=== PATIENT | female | born 1950 | race Hispanic/Latino ===

== ENCOUNTER 2018-06-15 18:29 | Emergency (ER) | payer BC, OTHER ==
[2018-06-15] MEDS ORDERED: METOCLOPRAMIDE 10 MG/2mL INJ ONE (18:58)
[2018-06-15] MEDS ORDERED: NA CHLORIDE 0.9% 500 ML ONE (18:59)
[2018-06-15 19:17] LABS: Absolute Lymphocytes (CBC) 2.9 K/uL (0.7-4.9); Absolute Monocytes 0.5 K/uL (0.1-1.3); Absolute Neutrophil 6.5 K/uL (1.8-8.0); Basophils % 0.6 % (0-1.3); Eosinophils % 1.2 % (0-4.4); Hematocrit 42.9 % (36.0-45.0); Lymphocytes % 28.5 % (15.3-44.8); MCH 30.1 pg (27.0-35.0); MCV 90.3 fL (80-100); MPV 11.1 fL (7.6-11.3); RBC Red Blood Cell Count 4.76 M/uL (3.86-4.86)
[2018-06-15 19:33] LABS: Urine Blood TRACE (NEG); Urine Glucose NEGATIVE (NEG); Urine Protein 1+ (NEG); Urine Specific Gravity 1.025 (1.005-1.030)
[2018-06-15 19:35] LABS: Urine Bacteria <20 /HPF (<20); Urine Culture Reflex Order REFLEXED; Urine Mucus 2+ /HPF (NONE SEEN); Urine RBC <5 /HPF (NONE SEEN)
[2018-06-15 19:35] LABS: ALT/SGPT 23 U/L (12-78); AST/SGOT 22 U/L (15-37); Albumin 3.9 g/dL (3.4-5.0); Alkaline Phosphatase 84 U/L (45-117); BUN Blood Urea Nitrogen 17 mg/dL (7-18); Bicarbonate 24 mmol/L (21-32); Bilirubin Direct < 0.1 mg/dL (0-0.2); Bilirubin Total 0.4 mg/dL (0.2-1.0); Glucose Level 149 mg/dL (74-106); Lipase 101 U/L (73-393); Potassium 3.5 mmol/L (3.5-5.1); Protein, Total 7.7 g/dL (6.4-8.2); Sodium Level 144 mmol/L (136-145)
--- NOTE | 2018-06-15 20:24 | EDPHYS ---
Physician Documentation [facility] Name: Alyse Cole Age: 68 yrs Sex: Female : 1950 Arrival Date: 06/15/2018 Time: 18:29 Bed 20 Private MD: ED Physician Buddy Neumann HPI: 06/15 19:00 This 68 yrs old Female presents to ER via Wheelchair with complaints of snw Weakness, Vomiting, Abdominal Pain. 19:00 The patient presents with abdominal pain in the periumbilical area. Onset: The snw symptoms/episode began/occurred suddenly, just prior to arrival. The symptoms do not radiate. Associated signs and symptoms: Pertinent positives: nausea and vomiting. The symptoms are described as crampy. Severity of pain: At its worst the pain was mild moderate. The patient has not experienced similar symptoms in the past. It is unknown whether or not the patient has recently seen a physician. PCP in [place]. Pt feels the symptoms are related to chicken ingested earlier in the day. Historical: - Allergies: 18:40 No Known Allergies; aj - Home Meds: 18:40 None [Active]; aj - PMHx: 18:40 None; aj - PSHx: 18:40 None; aj - Immunization history:: Adult Immunizations up to date. - Social history:: Smoking status: Patient/guardian denies using tobacco. - Ebola Screening: : Patient negative for fever greater than or equal to 101.5 degrees Fahrenheit, and additional compatible Ebola Virus Disease symptoms Patient denies exposure to infectious person Patient denies travel to an Ebola-affected area in the 21 days before illness onset No symptoms or risks identified at this time. ROS: 18:58 Constitutional: Negative for fever, chills, and weight loss, Eyes: Negative for injury, snw pain, redness, and discharge, ENT: Negative for injury, pain, and discharge, Neck: Negative for injury, pain, and swelling, Cardiovascular: Negative for chest pain, palpitations, and edema, Respiratory: Negative for shortness of breath, cough, wheezing, and pleuritic chest pain, Back: Negative for injury and pain, : Negative for injury, bleeding, discharge, and swelling, MS/Extremity: Negative for injury and deformity, Skin: Negative for injury, rash, and discoloration, Neuro: Negative for headache, weakness, numbness, tingling, and seizure. 18:58 Abdomen/GI: Positive for abdominal pain, nausea and vomiting, x 2 post ingestion of chicken today. Exam: 18:58 Constitutional: This is a well developed, well nourished patient who is awake, alert, snw and in no acute distress. Head/Face: Normocephalic, atraumatic. Eyes: Pupils equal round and reactive to light, extra-ocular motions intact. Lids and lashes normal. Conjunctiva and sclera are non-icteric and not injected. Cornea within normal limits. Periorbital areas with no swelling, redness, or edema. ENT: Nares patent. No nasal discharge, no septal abnormalities noted. Tympanic membranes are normal and external auditory canals are clear. Oropharynx with no redness, swelling, or masses, exudates, or evidence of obstruction, uvula midline. Mucous membranes moist. Neck: Trachea midline, no thyromegaly or masses palpated, and no cervical lymphadenopathy. Supple, full range of motion without nuchal rigidity, or vertebral point tenderness. No Meningismus. Chest/axilla: Normal chest wall appearance and motion. Nontender with no deformity. No lesions are appreciated. Cardiovascular: Regular rate and rhythm with a normal S1 and S2. No gallops, murmurs, or rubs. Normal PMI, no JVD. No pulse deficits. Respiratory: Lungs have equal breath sounds bilaterally, clear to auscultation and percussion. No rales, rhonchi or wheezes noted. No increased work of breathing, no retractions or nasal flaring. Back: No spinal tenderness. No costovertebral tenderness. Full range of motion. Skin: Warm, dry with normal turgor. Normal color with no rashes, no lesions, and no evidence of cellulitis. MS/ Extremity: Pulses equal, no cyanosis. Neurovascular intact. Full, normal range of motion. Neuro: Awake and alert, GCS 15, oriented to person, place, time, and situation. Cranial nerves II-XII grossly intact. Motor strength 5/5 in all extremities. Sensory grossly intact. Cerebellar exam normal. Normal gait. Psych: Awake, alert, with orientation to person, place and time. Behavior, mood, and affect are within normal limits. 18:58 Abdomen/GI: Inspection: abdomen appears normal, Bowel sounds: normal, Palpation: mild abdominal tenderness, in the umbilical area. Vital Signs: 18:40 BP 128 / 63; Pulse 83; Resp 27; Temp 97.1; Pulse Ox 98% on R/A; Weight 67.13 kg; Height aj 5 ft. 5 in. (165.10 cm); 20:16 BP 132 / 65; Pulse 78; Resp 15; Pulse Ox 99% on R/A; ao 18:40 Body Mass Index 24.63 (67.13 kg, 165.10 cm) aj MDM: 18:56 Patient medically screened. snw 18:58 Data reviewed: vital signs, nurses notes. Data interpreted: Pulse oximetry: on room air snw is 98 %. Interpretation: normal. Counseling: I had a detailed discussion with the patient and/or guardian regarding: the historical points, exam findings, and any diagnostic results supporting the discharge/admit diagnosis, lab results. 20:08 Response to treatment: the patient's symptoms have markedly improved after treatment. [facility] 06/15 18:52 Order name: Basic Metabolic Panel; Complete Time: 19:37 snw 06/15 18:52 Order name: CBC with Diff; Complete Time: 19:24 snw 06/15 18:52 Order name: Creatinine for Radiology; Complete Time: 19:25 snw 06/15 18:52 Order name: Hepatic Function; Complete Time: 19:37 snw 06/15 18:52 Order name: Lipase; Complete Time: 19:37 snw 06/15 18:52 Order name: Urine Microscopic Only; Complete Time: 19:37 snw 06/15 18:52 Order name: IV Saline Lock; Complete Time: 19:05 snw 06/15 18:52 Order name: Labs collected and sent; Complete Time: 19:05 snw 06/15 18:52 Order name: Urine Dipstick-Ancillary (obtain specimen); Complete Time: 19:57 snw 06/15 19:28 Order name: Urine Dipstick--Ancillary (enter results); Complete Time: 19:33 pr 06/15 19:37 Order name: Urine Culture EDMS Administered Medications: 19:17 Drug: NS 0.9% 500 ml Route: IV; Rate: bolus; Site: right antecubital; ao 20:52 Follow up: IV Status: Completed infusion; IV Intake: 500ml ao 19:17 Drug: Reglan 5 mg Route: IVP; Site: right antecubital; ao 20:51 Follow up: Response: No adverse reaction ao Disposition: 06/16 07:12 Co-signature as Attending Physician, Buddy Neumann MD I agree with the assessment and kdr plan of care. Disposition: 06/15/18 20:23 Discharged to Home. Impression: Vomiting, unspecified. - Condition is Stable. - Discharge Instructions: Clear Liquid Diet, Adult, Nausea and Vomiting, Adult, Rehydration, Adult. - Prescriptions for Zofran 4 mg Oral Tablet - take 1 tablet by ORAL route every 12 hours As needed; 20 tablet. - Medication Reconciliation Form, Thank You Letter, Antibiotic Education, Prescription Opioid Use form. - Follow up: Private Physician; When: 2 - 3 days; Reason: Recheck today's complaints, Continuance of care, Re-evaluation by your physician. Follow up: Emergency Department; When: As needed; Reason: Worsening of condition. Signatures: Dispatcher [employer] EDMely Domínguez, RN Buddy Villarreal MD MD [facility] Shameka Ren, HOOP MACHINE OPERATOR-C HOOP MACHINE OPERATOR-Csnw Aldair Reis RN RN ao Corrections: (The following items were deleted from the chart) 06/15 20:54 20:23 06/15/2018 20:23 Discharged to Home. Impression: Vomiting, unspecified. Condition ao is Stable. Forms are Medication Reconciliation Form, Thank You Letter, Antibiotic Education, Prescription Opioid Use. Follow up: Private Physician; When: 2 - 3 days; Reason: Recheck today's complaints, Continuance of care, Re-evaluation by your physician. Follow up: Emergency Department; When: As needed; Reason: Worsening of condition. snw
--- NOTE | 2018-06-15 20:24 | ER ---
Nurse's Notes [facility] Name: Alyse Cole Age: 68 yrs Sex: Female : 1950 Arrival Date: 06/15/2018 Time: 18:29 Bed 20 Private MD: Diagnosis: Vomiting, unspecified Presentation: 06/15 18:39 Presenting complaint: Child states: Vomiting x 2 episodes since eating chicken at 1400 aj today. Patient hyperventilating in triage. Transition of care: patient was not received from another setting of care. 18:39 Method Of Arrival: Wheelchair aj 18:40 Onset of symptoms was June 15, 2018. Risk Assessment: Do you want to hurt yourself or aj someone else? Patient reports no desire to harm self or others. Initial Sepsis Screen: Does the patient meet any 2 criteria? No. Patient's initial sepsis screen is negative. Does the patient have a suspected source of infection? No. Patient's initial sepsis screen is negative. Care prior to arrival: None. 18:40 Acuity: SILVERIO 3 aj Triage Assessment: 18:40 General: Appears in no apparent distress. comfortable, Behavior is anxious. Pain: aj Complains of pain in left upper quadrant and left lower quadrant. Neuro: Level of Consciousness is awake, alert, obeys commands, Oriented to person, place, time, situation, Appropriate for age. Respiratory: Airway is patent Respiratory effort is even, unlabored, Respiratory pattern is hyperventilation. Derm: Skin is intact, is healthy with good turgor, Skin is pink, warm \T\ dry. normal. Historical: - Allergies: 18:40 No Known Allergies; aj - Home Meds: 18:40 None [Active]; aj - PMHx: 18:40 None; aj - PSHx: 18:40 None; aj - Immunization history:: Adult Immunizations up to date. - Social history:: Smoking status: Patient/guardian denies using tobacco. - Ebola Screening: : Patient negative for fever greater than or equal to 101.5 degrees Fahrenheit, and additional compatible Ebola Virus Disease symptoms Patient denies exposure to infectious person Patient denies travel to an Ebola-affected area in the 21 days before illness onset No symptoms or risks identified at this time. Screenin:20 Abuse screen: Denies threats or abuse. Denies injuries from another. Nutritional ao screening: No deficits noted. Tuberculosis screening: No symptoms or risk factors identified. Fall Risk None identified. Assessment: 19:17 General: Appears in no apparent distress. comfortable, Behavior is calm, cooperative, ao appropriate for age. Pain: Complains of pain in abdomen. Neuro: Level of Consciousness is awake, alert, obeys commands, Oriented to person, place, time, situation, Appropriate for age Moves all extremities. Full function Speech is normal, Facial symmetry appears normal, Pupils are PERRLA, Intact. Cardiovascular: Reports nausea, shortness of breath, Denies chest pain, Heart tones S1 S2. Respiratory: Airway is patent Respiratory effort is even, unlabored, Respiratory pattern is regular, symmetrical. GI: Abdomen is non-distended, Reports upper abdominal pain, nausea. : No signs and/or symptoms were reported regarding the genitourinary system. EENT: No signs and/or symptoms were reported regarding the EENT system. Derm: Skin is intact, Skin is dry, Skin is pink, warm \T\ dry. normal, Skin temperature is warm. Musculoskeletal: Reports weakness in general weakness. 20:16 Reassessment: Patient appears in no apparent distress at this time. Patient and/or ao family updated on plan of care and expected duration. Pain level reassessed. Patient is alert, oriented x 3, equal unlabored respirations, skin warm/dry/pink. Patient under no distress at this time. 20:53 Reassessment: DC instructions given to patient. Patient agree with the POC and to ao follow up with PCP. Vital Signs: 18:40 BP 128 / 63; Pulse 83; Resp 27; Temp 97.1; Pulse Ox 98% on R/A; Weight 67.13 kg; Height aj 5 ft. 5 in. (165.10 cm); 20:16 BP 132 / 65; Pulse 78; Resp 15; Pulse Ox 99% on R/A; ao 18:40 Body Mass Index 24.63 (67.13 kg, 165.10 cm) ED Course: 18:29 Patient arrived in ED. as 18:40 Triage completed. aj 18:40 Arm band placed on left wrist. Patient placed in an exam room. aj 18:50 Shameka Ren FNP-C is PHCP. snw 18:50 Buddy Neumann MD is Attending Physician. sn 19:04 Initial lab(s) drawn, by me, sent to lab. Inserted saline lock: 20 gauge in right dh3 antecubital area, using aseptic technique. Blood collected. 19:08 Aldair Reis, RN is Primary Nurse. ao 19:21 Patient has correct armband on for positive identification. monitoring engineer on. Pulse ao ox on. NIBP on. 20:52 No provider procedures requiring assistance completed. IV discontinued, intact, ao bleeding controlled, No redness/swelling at site. Pressure dressing applied. Administered Medications: 19:17 Drug: NS 0.9% 500 ml Route: IV; Rate: bolus; Site: right antecubital; ao 20:52 Follow up: IV Status: Completed infusion; IV Intake: 500ml ao 19:17 Drug: Reglan 5 mg Route: IVP; Site: right antecubital; ao 20:51 Follow up: Response: No adverse reaction ao Intake: 20:52 IV: 500ml; Total: 500ml. ao Outcome: 20:23 Discharge ordered by MD. snw 20:52 Discharged to home ambulatory. ao 20:52 Condition: stable 20:52 Discharge instructions given to patient, Instructed on discharge instructions, follow up and referral plans. Demonstrated understanding of instructions, follow-up care, medications, Prescriptions given X 1. 20:54 Patient left the ED. ao Signatures: Mely Mccarthy, RN Shameka Martinez, ENGRAVER PICTURE-C ENGRAVER PICTURE-Elizabeth Escoto Alex, RN Coleen Pappas [facility]
== END 2018-06-15 20:54 | disposition home or self-care (01) ==
LOC: ER 18:29
DX: R11.10 Vomiting, unspecified (principal)
CPT/HCPCS: 36415; 80048; 80076; 81003; 81015; 83690; 85025; 87086; 87088; 96361; 96374; 99284; J2765

== ENCOUNTER 2024-03-28 09:48 | Day surgery (SDC) | payer MEDICAID, OTHER ==
[2024-03-27 14:17] LABS: Absolute Eosinophils 0.1 K/uL (0-0.5); Absolute Lymphocytes (CBC) 2.3 K/uL (0.7-4.9); Absolute Monocytes 0.5 K/uL (0.1-1.3); Absolute Neutrophil 4.5 K/uL (1.8-8.0); Basophils % 0.5 % (0-1.3); Hematocrit 40.5 % (36.0-45.0); Hemoglobin 13.3 g/dL (12.0-15.0); Lymphocytes % 30.9 % (15.3-44.8); MCH 29.4 pg (27.0-35.0); MCHC 32.7 g/dL (32.0-36.0); MPV 10.9 fL (7.6-11.3); Monocytes % 7.2 % (3.3-12.3); Neutrophils % 59.4 % (41.7-73.7); Platelets 158 thou/uL (152-406); Red Cell Distribution Width 13.9 % (12.1-15.2)
[2024-03-27 14:29] LABS: Anion Gap 5.6 mEq/L (5.0-15.0); Potassium 3.6 mEq/L (3.5-5.1)
[2024-03-28] MEDS: Ringers Lactate 1,000 ML IV ONE ×2 (10:22→15:20)
[2024-03-28] MEDS ORDERED: ONDANSETRON 4 MG/2 ML VIAL ONE (12:12)
[2024-03-28] MEDS ORDERED: propofoL 200 MG/20 ML VIAL IV ONE (12:12)
[2024-03-28] MEDS ORDERED: dexAMETHasone 10 MG/ML VIAL ONE (12:12)
[2024-03-28] MEDS ORDERED: FENTANYL CITR 100 MCG/2 ML ONE (12:12)
[2024-03-28] MEDS ORDERED: MIDAZOLAM HCL 2 MG/2 ML INJ ONE (12:12)
[2024-03-28] MEDS ORDERED: LIDOCAINE 1% MPF 5 ML VIAL ONE (12:12)
[2024-03-28] MEDS ORDERED: KETOROLAC 30 MG/ML INJ ONE (12:12)
[2024-03-28] MEDS: CEFAZOLIN SODIUM 2 GM/VIAL ONE (13:25)
[2024-03-28] MEDS: BUPIVACAINE 0.25% PF 30 ML VIAL ONE (13:36)
--- NOTE | 2024-03-28 15:14 | P.OP ---
Preoperative diagnosis: Bilateral Inguinal Hernias Postoperative diagnosis: Bilateral Inguinal Hernias Primary procedure: Open Bilateral Inguinal Hernia Repair with mesh Anesthesia: GETA + Local Estimated blood loss: <5cc Specimen: none Findings: Bilateral Inguinal Hernias - Adipose Complications: None Implants: Bard Perfix Large Plug and Patch x 2 Transferred to: Recovery Room Condition: Good
[2024-03-28] MEDS: HYDROCODONE/APAP 7.5/325 MG TAB ONE (16:45)
[2024-03-28 17:35] VITALS: BP 145/79; TEMP 97.8; O2SAT 99
--- NOTE | 2024-03-28 23:57 | OP ---
Date of Procedure: 03/28/2024 Surgeon: Alix Restrepo MD, Preoperative Diagnosis: Bilateral inguinal hernias. Postoperative Diagnosis: Bilateral inguinal hernias. Procedure Performed: Open bilateral inguinal hernia repair with mesh. Anesthesia: General endotracheal plus local with 0.25% Marcaine. Estimated Blood Loss: Less than 5 mL. Specimen: None. Findings: Bilateral inguinal hernias with adipose tissue incarcerated. Complications: None. Implants: Bard PerFix large plug and patch hernia repair system x2. Disposition: The patient was transferred to the recovery room in good condition. Procedure In Detail: After informed consent was obtained, the patient was brought to the operating r oom, prepped and draped in usual sterile fashion. After adequate anesthesia was achieved, I made an inguinal incision down to the subcutaneous tissues on the right side and dissected down through the s kin into Camper's fat and Sarha's fascia with electrocautery extending all the way down into the ext ernal oblique aponeurosis which was visual at this point. I then opened the external oblique aponeur osis sharply with a 15 blade and opened it to the deep inguinal ring and proximally to the hernia/sup erficial ring using a Metzenbaum scissor. At this point, I dissected the round ligament and structur es circumferentially around and a significant amount of preperitoneal adipose tissue away f rom this after the hernia sac was dissected free. The adipose tissue in the hernia sac was returned to the preperitoneal space. I then deployed a large Bard PerFix plug into the preperitoneal space an d secured it circumferentially around to the shelving edge of the deep ring using 2-0 PDS sutures in an interrupted fashion. The patient was Valsalva'd and tested at this point. There was no recurrenc e at this point and no mesh deformity. At this point, I irrigated the area. I then placed a Bard Pe rFix patch over the hernia defect and secured it to the pubic tubercle medially and to the undersurfa ce of the internal oblique aponeurosis and the undersurface of the inguinal ligament reconstituting t he deep ring at this point with the same said 2-0 PDS sutures in an interrupted fashion. At this poi nt, the area was irrigated once again. I then closed the external oblique aponeurosis using a runnin g 3-0 Vicryl suture protecting the ilioinguinal iliohypogastric throughout the procedure. At this po int, the area was irrigated once again. Camper's fat and Sarah's fascia were closed using en bloc f ashion with interrupted 3-0 Vicryl suture. Deep dermal plane closed with an additional 3-0 Vicryl troy ture and then the skin was closed with a 4-0 Monocryl in a running fashion. Dermabond was placed ove r top. I then proceeded to perform the left inguinal hernia. After informed consent was obtained, the patient was brought to the operating room, prepped and drape d in usual sterile fashion. After adequate anesthesia was achieved, I made an inguinal incision down to the subcutaneous tissues on the left side and dissected down through the skin into Camper's fat a nd Sarah's fascia with electrocautery extending all the way down into the external oblique aponeuros is which was visual at this point. I then opened the external oblique aponeurosis sharply with a 15 blade and opened it to the deep inguinal ring and proximally to the hernia/superficial ring using a M etzenbaum scissor. At this point, I dissected the round ligament and structures circumferentially ar ound and a significant amount of preperitoneal adipose tissue away from this after the mason ia sac was dissected free. The adipose tissue in the hernia sac was returned to the preperitoneal sp zara. I then deployed a large Bard PerFix plug into the preperitoneal space and secured it circumfere ntially around to the shelving edge of the deep ring using 2-0 PDS sutures in an interrupted fashion. The patient was Valsalva'd and tested at this point. There was no recurrence at this point and no mesh deformity. At this point, I irrigated the area. I then placed a Bard PerFix patch over the her von defect and secured it to the pubic tubercle medially and to the undersurface of the internal obli que aponeurosis and the undersurface of the inguinal ligament reconstituting the deep ring at this po int with the same said 2-0 PDS sutures in an interrupted fashion. At this point, the area was irriga alix once again. I then closed the external oblique aponeurosis using a running 3-0 Vicryl suture pro tecting the ilioinguinal iliohypogastric throughout the procedure. At this point, the area was irrig ated once again. Camper's fat and Sarah's fascia were closed using en bloc fashion with interrupted 3-0 Vicryl suture. Deep dermal plane closed with an additional 3-0 Vicryl suture and then the skin was closed with a 4-0 Monocryl in a running fashion. Dermabond was placed over top. The patient tolerated the procedure well without evidence of complication, transferred to PACU in goo d condition. All counts were correct at the end the case. ELROY/ALIREZA Voice ID: [id number] Report ID: [id number]
--- NOTE | 2024-03-31 13:31 | EKG ---
Test Date: 2024-03-27 Test Time: 13:59:35 Applique Cutter: ADDISON MEASUREMENT RESULTS: Intervals: Rate: 68 RI: 170 QRSD: 94 QT: 420 QTc: 446 Clio: P: 74 RI: 170 QRS: 89 T: 60 INTERPRETIVE STATEMENTS: Normal sinus rhythm Normal ECG Compared to ECG 03/10/2014 13:33:02 No significant changes Electronically Signed On 03-31-24 13:20:14 CDT by Prakash Lundy
== END 2024-03-28 17:24 | disposition home or self-care (01) ==
LOC: OR 09:48
PROVIDERS: ATTEND Surgery
PROC: 0YUA0JZ Supplement Bilateral Inguinal Region with Synthetic Substitute, Open Approach (ICD-10-PCS; principal; 2024-03-28 11:30)
DX: K40.20 Bilateral inguinal hernia, without obstruction or gangrene, not specified as recurrent (principal)
CPT/HCPCS: 93005; 85025; 80048; 36415; 49505; J2704; J2001; J2250; J3010; J1100; J2405; J7120 ×2